=== PATIENT | female | born 1990 | race Caucasian/White ===

== ENCOUNTER → 2017-06-06 | Outpatient (REF) | payer OTHER ==
[2017-06-06 13:28] LABS: HEMOGLOBIN 13.6 g/dl (12.0-16.0); MEAN CORPUSCULAR HEMOGLOBIN 34.1 pg (27.0-33.0); MEAN CORPUSCULAR HGB CONC 34.9 g/dl (32.0-36.5); MEAN CORPUSCULAR VOLUME 97.7 fl (80.0-96.0); PLATELET COUNT, AUTOMATED 336 10^3/uL (150-450); RED BLOOD COUNT 3.99 10^6/uL (4.00-5.40); RED CELL DISTRIBUTION WIDTH 12.1 % (11.5-14.5); WHITE BLOOD COUNT 7.6 10^3/uL (4.0-10.0)
[2017-06-06 14:06] LABS: HCG, SERUM QUANTITATIVE 27362 MIU/ML
[2017-06-06 14:11] LABS: RUBELLA IgG QUALITATIVE IMMUNE (IMMUNE)
[2017-06-06 14:12] LABS: HBsAg Prenatal NEGATIVE (NEGATIVE)
[2017-06-06 14:40] LABS: HIV 1&2 SCREEN CENTAUR NEGATIVE (NEGATIVE)
[2017-06-06 14:51] LABS: HEPATITIS C VIRUS ABY INDEX > 11.0 INDEX (<0.8)
[2017-06-11 00:07] LABS: HCV RNA NAA QUALITATIVE Negative (Negative)
== END ==
LOC: M LAB REF 13:09
DX: O36.80X0 Pregnancy with inconclusive fetal viability, not applicable or unspecified (principal)

== ENCOUNTER → 2017-07-07 | Outpatient (REF) | payer OTHER ==
[2017-07-07 20:07] LABS: CHLAMYDIA DNA AMPLIFICATION NEGATIVE (NEGATIVE); GC DNA AMPLIFICATION NEGATIVE (NEGATIVE)
== END ==
LOC: M LAB REF 17:17
DX: Z34.82 Encounter for supervision of other normal pregnancy, second trimester (principal); Z3A.16 16 weeks gestation of pregnancy; Z11.3 Encounter for screening for infections with a predominantly sexual mode of transmission

== ENCOUNTER → 2017-11-17 | Outpatient (REF) | payer OTHER | LOC: M LAB REF 17:09 | DX: O09.893 Supervision of other high risk pregnancies, third trimester (principal) ==

== ENCOUNTER 2017-12-07 18:41 | Inpatient (IN) | payer OTHER ==
[2017-12-07 19:50] LABS: MEAN CORPUSCULAR HEMOGLOBIN 36.1 pg (27.0-33.0); MEAN CORPUSCULAR HGB CONC 35.7 g/dl (32.0-36.5); MEAN CORPUSCULAR VOLUME 101.2 fl (80.0-96.0); PLATELET COUNT, AUTOMATED 232 10^3/uL (150-450); RED BLOOD COUNT 4.15 10^6/uL (4.00-5.40); RED CELL DISTRIBUTION WIDTH 12.1 % (11.5-14.5); WHITE BLOOD COUNT 11.5 10^3/uL (4.0-10.0)
[2017-12-07] MEDS: LACTATED RINGER'S 1000 ML IV (20:53)
[2017-12-07] MEDS: LR 1,000 ML IV (20:54)
[2017-12-07] MEDS: BICITRA 30ML SOLN UDC PO (20:58)
[2017-12-07] MEDS ORDERED: LR 1,000 ML IV (21:16)
[2017-12-07] MEDS ORDERED: RHOGAM 300 MCG (1500 IU) INJ (J2790) IM (21:30)
[2017-12-07] MEDS ORDERED: NORCO, ANEXSIA 5/325MG TABLET (HYDROcodone/ACETAMINOPHEN) PO (21:30)
[2017-12-07] MEDS ORDERED: MOM 30ML SUSPENSION UDC PO (21:30)
[2017-12-07] MEDS ORDERED: METHYLERGONOVINE MALEATE 0.2 MG TAB PO (21:30)
[2017-12-07] MEDS ORDERED: MEASLES,MUMPS,RUBELLA VACCINE INJ (MMR-II) (90707) SC (21:30)
[2017-12-07] MEDS ORDERED: ONDANSETRON 4MG/2ML VIAL (J2405) IV ×3 (21:30→22:45)
[2017-12-07] MEDS ORDERED: NALOXONE INJ 0.4 MG/1 ML VIAL (J2310) IV ×2 (21:32)
[2017-12-07] MEDS ORDERED: METOCLOPRAMIDE INJ 10MG/2ML VIAL (J2765) IV (21:32)
[2017-12-07] MEDS ORDERED: NALBUPHINE HCL 10 MG/ML AMP (J2300) IV (21:32)
[2017-12-07] MEDS ORDERED: OXYTOCIN INJ 10 UNITS/ML VIAL (J2590) As Ordered (22:03)
[2017-12-07] MEDS ORDERED: dexameTHASONE 4 MG/ML 1ML VIAL (J1100) As Ordered (22:03)
[2017-12-07] MEDS ORDERED: ONDANSETRON 4MG/2ML VIAL (J2405) As Ordered (22:03)
[2017-12-07] MEDS ORDERED: KETOROLAC 60 MG/2 ML VIAL (J1885) As Ordered (22:03)
[2017-12-07] MEDS ORDERED: MORPHINE PRES-FREE INJ 10 MG/10 ML VIAL (J2274) As Ordered (22:03)
[2017-12-07] MEDS ORDERED: MEPERIDINE INJ 25 MG/ML VIAL (J2175) IV (22:45)
[2017-12-07] MEDS ORDERED: PERCOCET 5MG/325MG TAB PO (22:45)
[2017-12-07] MEDS ORDERED: fentaNYL 100 MCG/2 ML INJECTION (J3010) IV (22:45)
[2017-12-08] MEDS: IBUPROFEN 800 MG TAB PO ×3 (06:00→21:34)
[2017-12-08 07:10] LABS: HEMATOCRIT 36.5 % (36.0-47.0); MEAN CORPUSCULAR HEMOGLOBIN 36.2 pg (27.0-33.0); MEAN CORPUSCULAR HGB CONC 35.3 g/dl (32.0-36.5); MEAN CORPUSCULAR VOLUME 102.5 fl (80.0-96.0); PLATELET COUNT, AUTOMATED 227 10^3/uL (150-450); RED BLOOD COUNT 3.56 10^6/uL (4.00-5.40); RED CELL DISTRIBUTION WIDTH 12.2 % (11.5-14.5); WHITE BLOOD COUNT 13.3 10^3/uL (4.0-10.0)
[2017-12-08 07:15] LABS: HEMOGLOBIN 12.9 g/dl (12.0-15.5)
[2017-12-08] MEDS: PRENATAL VITAMINS CHEWABLE TABLET PO (09:37)
[2017-12-08] MEDS: DOCUSATE SODIUM 100 MG CAP PO ×2 (09:37→21:33)
[2017-12-08] MEDS: NORCO, ANEXSIA 5/325MG TABLET (HYDROcodone/ACETAMINOPHEN) PO (18:47)
[2017-12-08] MEDS: LR 1,000 ML IV (19:02)
[2017-12-08] MEDS ORDERED: IBUPROFEN 800 MG TAB PO (23:30)
[2017-12-09] MEDS: IBUPROFEN 800 MG TAB PO (05:59)
[2017-12-09] MEDS: DOCUSATE SODIUM 100 MG CAP PO (08:51)
[2017-12-09] MEDS: PRENATAL VITAMINS CHEWABLE TABLET PO (08:51)
[2017-12-09] MEDS: ADACEL/BOOSTRIX VACCINE (DIPHTH/PERTUSS/ACELL/TETANUS)0.5ML SYR (90715) IM (08:53)
== END 2017-12-09 10:00 | disposition home or self-care (01) | DRG 540 ==
LOC: M LDO 18:41 → M OBS 23:35 → M LDI 19:25
PROVIDERS: Obstetrics & Gynecology
PROC: 10D00Z1 Extraction of Products of Conception, Low, Open Approach (ICD-10-PCS; principal; 2017-12-07 07:30)
DX: O44.13 Complete placenta previa with hemorrhage, third trimester (principal); O32.1XX0 Maternal care for breech presentation, not applicable or unspecified; Z37.0 Single live birth; Z3A.37 37 weeks gestation of pregnancy